=== PATIENT | female | born 1995 | race Caucasian/White ===

== ENCOUNTER 2024-02-14 03:43 | Inpatient (IN) ==
[2024-02-14] MEDS ORDERED: Prochlorperazine 5 mg/ml 2 ml VIAL (10 mg) IV PRN (04:03)
[2024-02-14] MEDS ORDERED: Nalbuphine 10 MG/ML 1 ML VIAL IV PRN (04:03)
[2024-02-14 06:37] LABS: Urine Benzodiazepine Screen None Detected (None Detect); Urine Cannabinoids Screen None Detected (None Detect); Urine Opiates Screen None Detected (None Detect)
[2024-02-14] MEDS: Lactated Ringers 1000 ml BAG 1,000 ML IV ONE (18:09)
[2024-02-14] MEDS: Oxytocin in LR 20,000 MILLI.UNIT/1,000 ML BAG IV SCH (18:52)
[2024-02-14] MEDS: Buffered Lidocaine 1% SYRIN 1 ml INTRADERM ONE (22:29)
[2024-02-14] MEDS: Lidocaine 1% VIAL 10 MG/ML 30 ML VIAL INJ PRN (22:30)
[2024-02-14] MEDS ORDERED: Glycerin ADULT 2.4 gm SUPP PR PRN (22:38)
[2024-02-14] MEDS ORDERED: Polyethylene Glycol 3350 17 GM PACKET PO PRN (22:38)
[2024-02-14] MEDS: Witch Hazel PAD JAR TOPICAL PRN (23:05)
[2024-02-14] MEDS: Dibucaine 1% OINT 28.35 GM TUBE PR PRN (23:05)
[2024-02-14 23:16] LABS: Hematocrit 29.9 % (35-45); Hemoglobin 10.5 g/dL (11.5-14.3); Mean Corpuscular Hgb Conc 35.3 g/dL (31-36); Mean Corpuscular Volume 85.2 fL (80-97); Mean Platelet Volume 9.8 fL (7.5-11.2); Platelet Count 156 10^3/uL (150-450); Red Blood Count 3.51 10^6/uL (3.63-4.92); Red Cell Distribution Width 12.9 % (12-17); White Blood Count 28.3 10^3/uL (3.8-11.8)
[2024-02-15] MEDS: Oxytocin in LR 20,000 MILLI.UNIT/1,000 ML BAG IV SCH (01:51)
[2024-02-15 02:14] LABS: ABS Lymphocytes 1.5 10^3/uL (1.0-4.8); ABS Monocytes 1.3 10^3/uL (0.0-0.9); ABS Neutrophils 25.5 10^3/uL (1.5-7.6); Lymphocyte % 5.3 %
[2024-02-15] MEDS: Lidocaine 1% MPF 5 ML VIAL ONE (02:57)
[2024-02-15] MEDS: Lactated Ringers 1000 ml BAG 1,000 ML IV SCH (02:57)
[2024-02-15] MEDS ORDERED: Lidocaine 1% VIAL 10 MG/ML 30 ML VIAL ONE (06:26)
[2024-02-15 20:15] LABS: Hematocrit 31.3 % (35-45); Hemoglobin 10.9 g/dL (11.5-14.3); Mean Corpuscular Hemoglobin 30.3 pg (27-33); Mean Corpuscular Hgb Conc 34.7 g/dL (31-36); Mean Corpuscular Volume 87.3 fL (80-97); Mean Platelet Volume 9.1 fL (7.5-11.2); Platelet Count 190 10^3/uL (150-450); Red Blood Count 3.59 10^6/uL (3.63-4.92); Red Cell Distribution Width 13.3 % (12-17); White Blood Count 18.1 10^3/uL (3.8-11.8)
[2024-02-15 20:20] LABS: ABS Lymphocytes 2.5 10^3/uL (1.0-4.8); ABS Monocytes 1.7 10^3/uL (0.0-0.9); ABS Neutrophils 13.9 10^3/uL (1.5-7.6); Eosinophil % 0.1 %; Lymphocyte % 13.8 %
[2024-02-16 10:31] VITALS: BP 103/59
[2024-02-16] MEDS: RHO D Immune Globulin (HUMAN) 300 MCG = 1,500 I.U. INJ IM PRN (17:38)
== END 2024-02-16 19:58 | disposition home or self-care (01) | DRG 807 ==
LOC: MCHOBOUT 03:43 → MCHOB 04:33